=== PATIENT | female | born 1960 | race Caucasian/White ===

== ENCOUNTER 2021-01-17 08:00 | Day surgery (SDC) | payer BC ==
[~2021-01-17] VITALS: Ht 165.1 cm; Wt 120.7 kg
[2021-01-17] MEDS ORDERED: AMLO10TA PO (14:29)
[2021-01-17 15:20] LABS: BASOPHILS % (AUTO) 0.3 % (0-1); EOSINOPHILS # (AUTO) 0.1 X10'3 (0-0.9); EOSINOPHILS % (AUTO) 0.8 % (0-6); LYMPHOCYTES % (AUTO) 30.2 % (21-51); MEAN CORPUSCULAR HEMOGLOBIN 29.4 PG (27.0-31.0); MEAN CORPUSCULAR VOLUME 86.5 FL (78-98); MEAN PLATELET VOLUME 8.6 FL (7.4-10.4); MONOCYTES # (AUTO) 0.7 X10'3 (0-0.9); MONOCYTES % (AUTO) 6.7 % (2-12); NEUTROPHILS # (AUTO) 6.1 X10'3 (1.8-7.7); PRE OP HEMATOCRIT 42.2 % (35.0-45.0); PRE OP HEMOGLOBIN 14.3 g/dL (12.0-16.0); PRE OP PLATELET COUNT 304 X10'3 (140-440); RED BLOOD COUNT 4.88 X10'6 (4.20-5.60); RED CELL DISTRIBUTION WIDTH 13.6 % (11.5-14.5)
[2021-01-17 15:38] LABS: ALBUMIN/GLOBULIN RATIO 1.1 (1.1-1.5); ALKALINE PHOSPHATASE 44 IU/L (46-116); BLOOD UREA NITROGEN 15 MG/DL (7-18); BUN/CREATININE RATIO 16.9 (6.6-38.0); CALCIUM 8.9 MG/DL (8.5-10.1); CHLORIDE 105 MMOL/L (99-107); CREATININE 0.89 MG/DL (0.40-0.90); PRE OP ALT 30 U/L (30-65); PRE OP ANION GAP 9 (8-16); PRE OP AST 18 U/L (10-37); PRE OP BILIRUB, TOTAL 0.3 MG/DL (0.0-1.0); PRE OP GLUCOSE 86 MG/DL (70-104); PRE OP POTASSIUM 3.7 MMOL/L (3.4-5.1); PRE OP SODIUM 140 MMOL/L (135-145); TOTAL CARBON DIOXIDE 26.3 MMOL/L (24-32); TOTAL PROTEIN 7.5 G/DL (6.4-8.2); eGFR 65 ML/MIN
[2021-02-08] MEDS ORDERED: ringers solution, lacted 1,000 ML IV SCH (05:00)
[2021-02-08] MEDS ORDERED: ceFAZolin inj. 3,000 MG in normal saline 100ml IV soln 100 ML IV ONE (05:30)
[2021-02-08] MEDS ORDERED: famotidine 20mg tablet PO ONE (05:30)
[2021-02-08] MEDS ORDERED: BUPIVAcaine 0.5% inj/PF 30 ML ONE (13:00)
[2021-02-08] MEDS ORDERED: BUPIVAcaine/PF 2.5mg/ml (0.25%) 10ml vial ONE (13:07)
[2021-02-08 14:31] LABS: ISTAT CREATININE 0.8 mg/dL (0.6-1.1); ISTAT HGB 15.6 g/dl (12.0-16.0); ISTAT IONIZED CALCIUM 1.21 mmol/L (1.03-1.32); ISTAT K 3.9 mmol/L (3.5-5.1); POC BUN/CREATININE RATIO 17.5 (6.6-38.0)
[2021-02-08] MEDS ORDERED: clindamycin 600mg/D5W 50ml 50 ML IV ONE (15:10)
--- NOTE | 2021-02-08 15:35 | NUR ---
PATIENT DISCHARGED HOME DUE TO CANCELLATION OF THE SURGERY. PATIENT VERBALIZED UNDERSTANDING OF THE SITUATION. PIVS WERE DISCONTINUED FROM RIGHT AND LEFT HANDS, CATHETERS INTACT WHEN DISCONTINUED. PATIENT DEPARTED THE [facility] WITH HER TO DRIVE HOME. Addendum: 02/08/21 at 1609 by Fátima Mendoza RN Amended: Links added.
--- NOTE | 2021-02-08 15:35 | NUR ---
THE SURGERY WAS CANCELLED DUE TO [facility]'S INABLITY TO TEST ON TIME FOR COVID PRE-OPERATIVELY USING RAPID COVID TEST PRE-OPERATIVEL. PATIENT WAS EXPLAINED THE SITUATION AND VERBALIZED UNDERSTANDING.
--- NOTE | 2021-02-08 15:35 | NUR ---
THE SURGERY WAS CANCELLED DUE TO [facility]'S INABILITY TO GET RESULT FOR COVID RAPID TEST ON TIME PRE-OPERATIVELY. COVID RAPID TEST AT [facility] IS THE NEW PROTOCOL STARTED THIS WEEK WHICH WAS NOT ROUTINELY DONE IN THE PAST IN [facility] ON THE DAY OF SURGERY. THE PATIENT WAS EXPLAINED THE SITUATION AND VERBALIZED UNDERSTANDING. PATIENT LEFT HOSPITAL WITH HER WITHOUT INCIDENTS AND DRIVING HOME WITH HIM IN PRIVATE VEHICLE. Addendum: 02/08/21 at 1736 by Fátima Mendoza RN Amended: Links added.
== END 2021-02-08 15:35 | disposition home or self-care (01) ==
LOC: LAB 08:00 → PAS 02-08 13:48
PROVIDERS: ATTEND Orthopaedic Surgery Hand Surgery
DX: G56.01 Carpal tunnel syndrome, right upper limb (principal); Z53.8 Procedure and treatment not carried out for other reasons; I10 Essential (primary) hypertension; Z88.1 Allergy status to other antibiotic agents; Z79.899 Other long term (current) drug therapy; Z98.890 Other specified postprocedural states; Z72.89 Other problems related to lifestyle; M25.531 Pain in right wrist
CPT/HCPCS: 36415; 80047; 80053; 85025; 93005; J0690; J3490; J7120